=== PATIENT | female | born 1970 | race Caucasian/White ===

== ENCOUNTER 2018-10-22 22:43 | Emergency (ER) | payer BC ==
[2018-10-23] MEDS: ACETAMINOPHEN 325 MG TAB PO (03:25)
[2018-10-23] MEDS: IBUPROFEN 200 MG TAB PO (03:26)
== END 2018-10-23 03:41 | disposition home or self-care (01) ==
LOC: FTE 22:43
DX: M54.5 Low back pain (principal); I10 Essential (primary) hypertension; E11.9 Type 2 diabetes mellitus without complications
CPT/HCPCS: 99282; Z7502